=== PATIENT | female | born 1985 | race Two or more races ===

== ENCOUNTER 2022-02-06 04:17 | Inpatient (IN) | payer MEDICAID, OTHER ==
[~2022-02-06] VITALS: Ht 157.5 cm; Wt 55.8 kg
[2022-02-06 05:06] LABS: BASOPHILS % (AUTO) 0.7 % (0.0-2.0); EOSINOPHILS % (AUTO) 0.4 % (1.0-6.0); HEMATOCRIT 37.7 % (36-46); HEMOGLOBIN 13.1 g/dL (12.0-16.0); LYMPHOCYTES % (AUTO) 9.9 % (22.0-44.0); MEAN CORPUSCULAR HEMOGLOBIN 31.5 pg (26.0-34.0); MEAN CORPUSCULAR HGB CONC 34.7 G/dL (31.0-37.0); MEAN CORPUSCULAR VOLUME 91 fL (80-100); MONOCYTES # (AUTO) 0.8 K/uL (0.1-1.0); MONOCYTES % (AUTO) 8.4 % (2.0-9.0); NEUTROPHILS % (AUTO) 80.6 % (40.0-70.0); PLATELET COUNT (AUTO) 200 K/uL (150-450); RED BLOOD CELL COUNT(AUTO) 4.15 MIL/uL (4.00-5.20); RED CELL DISTRIBUTION WIDTH 13.3 % (11.5-14.5)
[2022-02-06 05:15] LABS: ANION GAP 11 mmol/L (8-16); CALCIUM, TOTAL 9.3 mg/dL (8.8-10.5); CARBON DIOXIDE 25 mmol/L (22-29); CHLORIDE 102 mmol/L (98-107); CREATININE 0.74 mg/dL (0.60-1.30); GLUCOSE,RANDOM 94 mg/dL (70-110); POTASSIUM 3.5 mmol/L (3.5-5.1); SODIUM SERUM 138 mmol/L (136-145); UREA NITROGEN, BLOOD 5 mg/dL (7-18)
[2022-02-06 05:17] LABS: GLOMERULAR FILTR. RATE CALC > 60 mL/min (>60)
[2022-02-06 05:21] LABS: ALANINE AMINOTRANSFERASE 25 U/L (12-78); ALBUMIN 4.3 g/dL (3.4-5.0); ALKALINE PHOSPHATASE 69 U/L (46-116); ASPARTATE AMINOTRANSFERASE 32 U/L (15-37); BILIRUBIN,TOTAL 0.8 mg/dL (0.1-1.0); TOTAL PROTEIN, SERUM 7.2 g/dL (6.4-8.2)
[2022-02-06] MEDS ORDERED: HALOPERIDOL LACTATE 5 MG/ML VIAL IM ONE (06:00)
[2022-02-06] MEDS ORDERED: DiphenhydrAMINE HCL 50 MG/ML VIAL IM ONE (06:00)
[2022-02-06] MEDS ORDERED: LORazepam 2 MG/ML VIAL IM ONE (06:00)
[2022-02-06 06:50] LABS: COVID AG,FIA SOURCE NASOPHARYNGEAL
[2022-02-06] MEDS ORDERED: HALOPERIDOL 5 MG TABLET PO PRN (07:15)
[2022-02-06] MEDS ORDERED: ZOLPIDEM TARTRATE 10 MG TABLET PO PRN (07:15)
[2022-02-06] MEDS ORDERED: LORazepam 2 MG TABLET PO PRN (07:15)
[2022-02-06 12:50] VITALS: BP 99/64
[2022-02-06 21:02] VITALS: BP 100/63
[2022-02-07] MEDS ORDERED: ONDANSETRON HCL 4 MG TABLET PO PRN (07:15)
[2022-02-07] MEDS ORDERED: MAGNESIUM HYDROXIDE SUSPENSION 30 ML UDCUP PO PRN (07:15)
[2022-02-07] MEDS ORDERED: BENZOCAINE/MENTHOL LOZENGE PO PRN (07:15)
[2022-02-07] MEDS ORDERED: ALBUTEROL SULFATE HFA 90 MCG/PUFF 8 GM INHALER IH PRN (07:15)
[2022-02-07] MEDS ORDERED: DOCUSATE SODIUM 100 MG CAPSULE PO PRN (07:15)
[2022-02-07] MEDS ORDERED: BACITRACIN 28 GM OINTMENT TP PRN (07:15)
[2022-02-07] MEDS ORDERED: MAG HYDROX/AL HYDROX/SIMETH ES 30 ML SUSPENSION UDCUP PO PRN (07:15)
[2022-02-07] MEDS ORDERED: LOPERAMIDE HCL 2 MG CAPSULE PO PRN (07:15)
[2022-02-07] MEDS ORDERED: IBUPROFEN 600 MG TABLET PO PRN (07:15)
[2022-02-07] MEDS ORDERED: ACETAMINOPHEN 325 MG TABLET PO PRN (07:15)
[2022-02-07] MEDS ORDERED: OMEPRAZOLE 20 MG CAPSULE PO PRN (07:15)
[2022-02-07] MEDS ORDERED: PETROLATUM,WHITE 28 GM JELLY TP PRN (07:15)
[2022-02-07] MEDS ORDERED: CloNIDine HCL 0.1 MG TABLET PO PRN (07:15)
[2022-02-07] MEDS: ARIPiprazole 5 MG TABLET PO SCH (08:07)
[2022-02-07 08:18] VITALS: BP 112/62
[2022-02-07 08:22] VITALS: BP 112/62
[2022-02-07 16:46] VITALS: BP 105/57
[2022-02-07 20:04] VITALS: BP 100/60
[2022-02-08] MEDS: ARIPiprazole 5 MG TABLET PO SCH (08:38)
[2022-02-08 09:32] VITALS: BP 105/52
== END 2022-02-08 12:52 | disposition left against medical advice (07) | DRG 750 ==
LOC: EMS 04:19 → B3A 07:07
PROVIDERS: ADMIT Psychiatry & Neurology Psychiatry; ATTEND Psychiatry & Neurology Psychiatry
DX: F20.0 Paranoid schizophrenia (principal); F19.950 Other psychoactive substance use, unspecified with psychoactive substance-induced psychotic disorder with delusions; F32.A Depression, unspecified; G47.00 Insomnia, unspecified; K59.00 Constipation, unspecified; Z81.8 Family history of other mental and behavioral disorders; Z79.899 Other long term (current) drug therapy; Z20.822 Contact with and (suspected) exposure to COVID-19
CPT/HCPCS: 70450; 80053; 84703; 85025; 99285; G0480; J1200; J1630; J2060

== ENCOUNTER 2022-03-18 23:29 | Emergency (ER) | payer MEDICAID, OTHER ==
[2022-03-19] MEDS ORDERED: LORazepam 2 MG TABLET PO ONE (01:45)
[2022-03-19] MEDS ORDERED: DiphenhydrAMINE HCL 25 MG CAPSULE PO ONE (01:45)
[2022-03-19] MEDS ORDERED: HALOPERIDOL 5 MG TABLET PO ONE (01:45)
== END 2022-03-19 02:20 | disposition home or self-care (01) ==
LOC: EMS 23:33
DX: F22 Delusional disorders (principal); F41.9 Anxiety disorder, unspecified; F20.9 Schizophrenia, unspecified
CPT/HCPCS: 99284; Z7502; Z7610